=== PATIENT | female | born 1940 ===

== ENCOUNTER 2019-07-09 11:20 | Emergency (ER) | payer OTHER ==
[~2019-07-09] VITALS: Ht 157.5 cm; Wt 68.0 kg
[2019-07-09] MEDS ORDERED: METFORMIN HCL500 MG (11:40)
[2019-07-09] MEDS ORDERED: AVAPRO300 MG (11:40)
[2019-07-09] MEDS ORDERED: LIPITOR40 MG (11:41)
[2019-07-09] MEDS ORDERED: KETO10TA2 PO (16:51)
[2019-07-09] MEDS ORDERED: FLONASE ALLERG9.9 ML NASAL (16:51)
== END 2019-07-09 17:04 ==
LOC: ER 11:20
DX: G44.209 Tension-type headache, unspecified, not intractable (principal); J32.8 Other chronic sinusitis